=== PATIENT | female | born 1965 | race African-American/Black ===

== ENCOUNTER 2020-12-05 14:03 | Emergency (ER) | payer MEDICAID ==
[~2020-12-05] VITALS: Ht 167.6 cm; Wt 63.0 kg
[2020-12-05] MEDS ORDERED: ACETAMINOPHEN 325MG TABLET PO STA (14:29)
[2020-12-05] MEDS ORDERED: ONDANSETRON HCL 4MG/2ML INJ IV STA (14:29)
[2020-12-05] MEDS ORDERED: SODIUM CHLORIDE 0.9% 1,000 ML IV ONE (14:30)
[2020-12-05 15:35] LABS: BASOPHILS % 0.2 % (0.0-2.0); HEMATOCRIT. 31.7 % (36.0-48.0); HEMOGLOBIN. 10.8 g/dL (12.0-16.0); LYMPHOCYTES % 9.2 % (20.0-50.0); MEAN CORPUSCULAR HEMOGLOBIN 32.6 pg (28.0-32.0); MEAN CORPUSCULAR VOLUME 95.5 fL (81.0-99.0); MEAN PLATELET VOLUME 7.3 fl (7.4-10.4); MONOCYTES % 6.2 % (2.0-8.0); NEUTROPHILS % 84.4 % (40.0-76.0); PLATELET 184 x1000/uL (130-400); RED BLOOD CELL COUNT 3.32 mill/uL (4.2-5.4); RED CELL DISTRIBUTION WIDTH 16.3 % (11.6-14.6)
[2020-12-05 15:41] LABS: CHLORIDE 106 mEq/L (98-107)
[2020-12-05] MEDS ORDERED: KETOROLAC 15MG/ML VIAL IV NR (15:45)
[2020-12-05 15:46] LABS: ETHANOL BLOOD < 10 mg/dL
[2020-12-05] MEDS ORDERED: MORPHINE SULFATE 4 MG/ML CPJ (NOT FOR IM USE) IV ONE (17:15)
[2020-12-05] MEDS ORDERED: KETOROLAC 15MG/ML VIAL IV ONE (18:30)
[2020-12-05 19:05] VITALS: BP 144/72
== END 2020-12-05 19:26 | disposition home or self-care (01) ==
LOC: ER 14:03
DX: R51.9 Headache, unspecified (principal); R11.0 Nausea; E11.9 Type 2 diabetes mellitus without complications; I10 Essential (primary) hypertension; F17.290 Nicotine dependence, other tobacco product, uncomplicated; F12.10 Cannabis abuse, uncomplicated
CPT/HCPCS: 36415; 70450; 80053; 80320; 85025; 93005; 96361; 96374; 96375; 99285; J1885; J2270; J2405; J7030; Z7610; G0480

== ENCOUNTER 2022-01-02 08:05 | Emergency (ER) | payer MEDICAID ==
[~2022-01-02] VITALS: Ht 165.1 cm; Wt 78.0 kg
[2022-01-02] MEDS ORDERED: PREDNISONE 1MG TABLET PO ONE (09:15)
[2022-01-02] MEDS ORDERED: COLCHICINE 0.6MG TABLET PO ONE (09:15)
[2022-01-02] MEDS ORDERED: KETOROLAC 60MG/2ML VIAL IM ONE (09:15)
[2022-01-02] MEDS ORDERED: MORPHINE SULFATE 10 MG/ML CPJ IM ONE (09:15)
[2022-01-02] MEDS: PREDNISONE 10MG TABLET PO SCH ×3 (10:23→10:25)
[2022-01-02 10:33] VITALS: BP 171/95
[2022-01-02] MEDS ORDERED: COLC0.6C3 MT (10:34)
[2022-01-02] MEDS ORDERED: PRED10TA MT ×2 (10:34)
[2022-01-02] MEDS ORDERED: IBUP-2028 MT (10:34)
== END 2022-01-02 11:58 | disposition home or self-care (01) ==
LOC: ER 08:52
DX: M10.062 Idiopathic gout, left knee (principal); I10 Essential (primary) hypertension
CPT/HCPCS: 96372; 99284; J1885; J2270; J7512; Z7610